=== PATIENT | male | born 1985 | race Caucasian/White ===

== ENCOUNTER 2016-09-09 20:27 | Emergency (ER) | payer BC ==
[~2016-09-09] VITALS: Ht 185.4 cm; Wt 81.6 kg
[~2016-09-09 20:27] MED LIST: IBUPROFEN600 MG ORAL; NORCO 10-325 T1 EACH ORAL
[2016-09-09 20:45] VITALS: BP 138/89
[2016-09-09] MEDS ORDERED: Lidocaine 1% MPF 10mg/ml 5ml ONE (21:02)
[2016-09-09] MEDS ORDERED: Bacitracin Oint UD TOPIC ONE ×2 (21:33→21:45)
[2016-09-09 21:35] VITALS: BP 138/89
--- NOTE | 2016-09-10 03:21 | Emergency Room Report ---
History of Present Illness General Chief Complaint: Laceration Source: Patient Present Illness HPI 31-year-old male presents ED status post laceration. States he was elbowed in the face tonight while playing basketball. Denies LOC. Denies any other injuries. Notes bleeding above the right eyebrow. Tetanus is up-to-date. Denies pain. No other aggravating relieving factors. Denies any other associated symptom Allergies: Coded Allergies: No Known Allergies (Unverified , 12/17/15) Patient History Past Medical History: none Past Surgical History: none Pertinent Family History: none Social History: Denies: alcohol use, drug use, smoking Immunizations: UTD Reviewed Nursing Documentation: PMH: Agreed, PSxH: Agreed Nursing Documentation-PMH Past Medical History: No Stated History Review of Systems All Other Systems: negative except mentioned in HPI Physical Exam Vital Signs Date Time Temp Pulse Resp B/P Pulse Ox O2 Delivery O2 Flow Rate FiO2 09/09/16 20:37 98.2 83 17 140/90 97 Room Air Sp02 EP Interpretation: reviewed, normal General Appearance: no apparent distress, alert, GCS 15, non-toxic Head: normocephalic, other - 2cm stellate laceration in R eyebrow. Eyes: bilateral eye EOMI, bilateral eye PERRL, bilateral eye normal inspection ENT: hearing grossly normal, normal pharynx, no angioedema, normal voice Neck: normal inspection Respiratory: normal inspection Cardiovascular #1: normal inspection Gastrointestinal: normal inspection Rectal: deferred Genitourinary: no CVA tenderness Neurologic: alert, oriented x3, responsive, motor strength/tone normal, sensory intact, speech normal Psychiatric: judgement/insight normal, memory normal, mood/affect normal, no suicidal/homicidal ideation Skin: normal inspection Lymphatic: normal inspection Procedures Laceration/Wound Repair Laceration/Wound Repair : Consent: Verbal Wound Location: face - R eyebrow Wound's Depth, Shape: stellate Wound Explored: clean Betadine Prep?: Yes Anesthesia: 1% Lidocaine Wound Debrided: minimal Wound Repaired With: sutures Suture Size/Type: 6:0, proline Layer Closure?: No Sterile Dressing Applied?: Yes Splint Applied?: No Sling Applied?: No Patient Tolerated: Well Complications: None Medical Decision Making Diagnostic Impression: Primary Impression: Laceration ER Course Hospital Course 31-year-old M presents to ED s/p laceration at R eyebrow Clinical course Patient placed on stretcher. After initial history and physical, Anesthesia provided with lidocaine. Laceration repaired w/o complication. Dressing applied. Diagnosis - laceration Stable and discharged to home. wound Care instructions given. Followup with PMD in 5-7 days for suture removal. Return to ED if any signs of infection develop Last Vital Signs Date Time Temp Pulse Resp B/P Pulse Ox O2 Delivery O2 Flow Rate FiO2 09/09/16 21:35 98.2 86 16 138/89 100 Room Air Status: improved Disposition: HOME, SELF-CARE Condition: Stable Referrals: NOT CHOSEN IPA/,REFERRING (PCP) Patient Instructions: Laceration Care, Adult Additional Instructions: return to ED in 5-7 days for suture removal. return to ED if any signs of infection develop DILCIA CHAVEZ M.D. Sep 10, 2016 03:21
== END 2016-09-09 23:00 | disposition home or self-care (01) ==
LOC: EMR 22:50
DX: S01.111A Laceration without foreign body of right eyelid and periocular area, initial encounter (principal); Y93.67 Activity, basketball; Y92.9 Unspecified place or not applicable

== ENCOUNTER 2016-09-15 12:06 | Emergency (ER) | payer BC ==
[~2016-09-15] VITALS: Ht 185.4 cm; Wt 79.4 kg
[2016-09-15 12:55] VITALS: BP 123/70
[2016-09-15 13:15] VITALS: BP 123/70
--- NOTE | 2016-09-15 15:25 | Emergency Room Report ---
History of Present Illness General Chief Complaint: Wound Recheck/Suture Removal Source: Patient Present Illness HPI The patient is a 31-year-old male presenting for suture removal. The patient sustained a laceration to the right eyebrow and sutures were placed one week prior. The patient denies any complications. Patient denies bleeding, other discharge, pain, numbness or tingling, fever, chills Allergies: Coded Allergies: No Known Allergies (Unverified , 12/17/15) Patient History Past Medical History: see triage record Pertinent Family History: none Reviewed Nursing Documentation: PMH: Agreed, PSxH: Agreed Nursing Documentation-PMH Past Medical History: No Stated History Review of Systems All Other Systems: negative except mentioned in HPI Physical Exam Vital Signs Date Time Temp Pulse Resp B/P Pulse Ox O2 Delivery O2 Flow Rate FiO2 09/15/16 12:43 99.0 50 14 123/70 99 Room Air Sp02 EP Interpretation: reviewed, normal General Appearance: no apparent distress, alert, GCS 15, non-toxic Head: normocephalic, atraumatic Eyes: bilateral eye PERRL, bilateral eye normal inspection ENT: hearing grossly normal, normal pharynx, no angioedema, normal voice Neck: full range of motion, supple/symm/no masses Musculoskeletal: back normal, gait/station normal, normal range of motion, non- tender Neurologic: alert, oriented x3, responsive, motor strength/tone normal, sensory intact, normal gait, speech normal Psychiatric: judgement/insight normal, memory normal, mood/affect normal, no suicidal/homicidal ideation Skin: laceration - R eyebrow: well approximated. No bleeding. Sutures in place Lymphatic: no adenopathy Medical Decision Making PA Attestation Dr. Rodriguez is my supervising physician. Patient management was discussed with my supervising physician Diagnostic Impression: Primary Impression: Encounter for wound re-check Additional Impression: Encounter for removal of sutures ER Course The patient is a 31-year-old male presenting for suture removal. Differential diagnosis considered: Wound infection, nonhealing wound, cellulitis , abscess Physical exam: Vitals within normal limits. No apparent distress There are [address] over the right eyebrow. No bleeding. No discharge. No edema. Wound was approximated Suture removal: 3 simple interrupted sutures were removed without complication. No bleeding or discharge. Wound is well approximated. No surrounding erythema. The patient is discharged home and will continue to keep the wound clean and dry. ER precautions are given Last Vital Signs Date Time Temp Pulse Resp B/P Pulse Ox O2 Delivery O2 Flow Rate FiO2 09/15/16 12:55 99.0 50 14 123/70 99 Room Air Status: improved Disposition: HOME, SELF-CARE Condition: Improved Referrals: NON PHYSICIAN (PCP) Patient Instructions: Suture Removal, Care After Additional Instructions: I discussed my findings with the patient. All questions and concerns have been answered. Treatment and medication compliance have been addressed. I advised the patient that they need to follow up with PMD in 3-5 days. Return to ED if symptoms worsen, new symptoms arise, or if needed for any reason. Patient verbalized understanding of discharge instructions. ROSA ELENA HANKS Sep 15, 2016 15:25
== END 2016-09-15 13:15 | disposition home or self-care (01) ==
LOC: EMR 12:50
DX: S01.111D Laceration without foreign body of right eyelid and periocular area, subsequent encounter (principal); X58.XXXD Exposure to other specified factors, subsequent encounter; Z48.02 Encounter for removal of sutures
CPT/HCPCS: 99281